=== PATIENT | female | born 1940 | race Caucasian/White ===

== ENCOUNTER 2017-10-24 08:39 | Outpatient (CLI) | payer MEDICARE, BC, OTHER, SELFPAY ==
[2017-10-24] VITALS (14 sets, daily range): BP systolic 119–174; BP diastolic 39–76; PULSE 61–74; RESP 18–20; TEMP 36.1; O2SAT 64–100
--- NOTE | 2017-10-24 08:42 | DI.RAD.S_ITS ---
PROCEDURE: PAIN L/S TRANSFORAMINAL INJECT INDICATIONS: Intervertebral disc displacement lumbar spine FINDINGS: Fluoroscopic spot filming was performed to verify placement of spinal needles at the left L4-5 nerve root level(s), as labeled on the films. Appropriate location(s) of the needle tip(s) was confirmed by injection of iodinated contrast. IMPRESSION: Successful left L4-5 nerve root epidural localization. Dictated by: Tavon Schuster M.D. on 10/24/2017 at 15:34 Approved by: Tavon Schuster M.D. on 10/24/2017 at 15:35
--- NOTE | 2017-10-24 09:38 | P.PCN_ITS ---
Procedures Date/Time Date of procedure: 10/24/17 Time of procedure: 09:37 General Procedure description: PREOP DIAGNOSIS 1. FORMAINAL STENOSIS WITH LE SYMPTOMS POST OP DIAGNOSIS 1. FORMAINAL STENOSIS WITH LE SYMPTOMS PROCEDURES 1. FLUOROSCOPICALLY GUIDED CONTRAST CONTROLLED TRANSFORAMINAL EPIDURAL STEROID INJECTION - LEFT L4/5 PHYSICIAN: Salazar Gama DO INDICATIONS: Kimmie is referred by Dr. Smith for treatment of Foraminal Stenosis with Left LE Symptoms FINDINGS Foraminal Nerve Root Compression secondary to disc disease and facet hypertrophy DESCRIPTION OF PROCEDURE: Following denial of allergy and review of potential side effects and complications, including, but not necessarily limited to, infection, allergic reaction, local tissue breakdown, stroke, temporary or permanent nerve injury, paralysis, and possible , the patient indicated that the patient understood and agreed to proceed. An informed consent document was signed by the patient, witnessed by a nurse, and placed in the patient's chart. Additionally, other treatment options including medications, modalities, and physical therapy were reviewed with the patient. Per the patient request, IV conscious sedation was administered via 4mg of Versed to patient comfort. The patient's vital signs were monitored throughout the procedure by both the nurse and the physician without significant fluctuation. The patient remained conversant throughout the procedure. In the prone position following sterile prep and drape of the lumbar region, the left L4/5 posterior neuroforamen was identified fluoroscopically. The skin was anesthetized via a 25-gauge 1.5-inch needle with 1% lidocaine solution. At this point, a 25-gauge 3.5-inch spinal needle was atraumatically introduced and advanced under fluoroscopic guidance through the posterior left L4/5 neuroforamen to approximately the anterior aspect of the canal. Depth was confirmed on lateral view. Following negative aspiration, injection of approximately 1.5 cc of Isovue 200 under live fluoroscopy in the AP view confirmed excellent flow along the nerve root, into the epidural space without vascular or intrathecal uptake observed Radiological data, including multiple fluoroscopic views of the lumbosacral spine, reveal a spinal needle at the Left L4/5 posterior neuroforamen. Subsequent views show flow of contrast material flowing superiorly and inferiorly along the nerve root confirming epidural flow. Subsequently, a test dose of 1.5 cc of 1% lidocaine solution was administered and patient was observed for two minutes for signs or symptoms of complications , including abdominal pain, shortness of breath, bilateral upper or lower extremity weakness, nausea and vomiting, prior to steroid injection. At this point, a total of 3 cc or 20 mg of dexamethasone and 80mg Depo Medrol was injected without incident. The patient was then transferred to the recovery area where they were observed for an appropriate time after the injection. The patient reported a VAS score of 7 prior to the procedure and a post-procedure VAS of 0. Total Fluoroscopy Time: 20.9 seconds Total Conscious Sedation Time: 24min POST OP INSTRUCTIONS The patient was provided a Pain Log to continue to record their response to the target-specific procedure prior to follow-up visit with their referring physician. Additionally, specific post-injection care instructions and a contact number to our office were provided if concerns arise regarding possible complications associated with the procedure are suspected. Salazar Gama DO Complications: none
[2017-10-24] MEDS: MIDAZOLAM 5 MG/5 ML VIAL IV (09:58)
[2017-10-24] MEDS: DEXAMETHASONE 10 MG/ML VIAL INJ (10:06)
[2017-10-24] MEDS: DEXAMETHASONE 10 MG/ML VIAL 20 MG INJ (10:06)
[2017-10-24] MEDS: BUPIVACAINE 0.25% (PF) 30 ML VIAL INJ (10:06)
[2017-10-24] MEDS: methylPREDNISolone acetate 80 MG/ML VIAL INJ (10:06)
[2017-10-24] MEDS: IOPAMIDOL 15 ML VIAL 3 ML INJ (10:06)
== END 2017-10-24 10:50 | disposition home or self-care (01) ==
LOC: RAD 08:41
PROVIDERS: PCP Family Medicine; Visit Provider Physical Medicine & Rehabilitation
DX: M51.26 Other intervertebral disc displacement, lumbar region (principal); M79.605 Pain in left leg
CPT/HCPCS: 64483; 99152; J1040; J1100; J2250